=== PATIENT | female | born 1945 ===

== ENCOUNTER 2024-02-26 06:22 | Day surgery (SDC) | payer MEDICARE, SELFPAY ==
--- NOTE | 2024-02-23 13:21 | PTCARENOTE ---
Spoke with Ricky Mccurdy LPN @ [facility]. She stated patient was in facility for rehab, living independently prior to admission and she was unsure if patient was returning to facility or going home with family. Ricky will
call back today to mariana- Robyn Landry from [employer] notified.
[2024-02-23 16:07] VITALS: BMI 23.4
[2024-02-26] VITALS (7 sets, daily range): BP systolic 111–141; BP diastolic 57–69; BMI 23.4
[2024-02-26 09:26] LABS: Glucose - Point of Care 86 mg/dl (70-99)
[2024-02-26] MEDS: TYLENOL 1000 MG PO (09:27)
[2024-02-26] MEDS: NORMOSOL-R/PLASMALYTE-A 1000 IV (09:27)
--- NOTE | 2024-02-26 09:48 | CM ---
Late Entry for Thursday 02/22. Call placed to Shane at [facility], who directed me to call Coreen in Admissions. Spoke to Coreen , she stated that patient can return to them, pending their bed availability. She stated she was not sure whether the
patient's plan was to return to their facility after her surgery or to go home with her daughter to recover from the surgery. Will speak to patient post her surgery to discuss discharge plans.
[2024-02-26 12:05] LABS: Glucose - Point of Care 89 mg/dl (70-99)
--- NOTE | 2024-02-26 13:37 | SUR.PHASEII ---
call placed to ambulance service for pickup , vss, Dr Lockett called for clarification of restart of xarelto and need for post op shoe - orders received. SDS with available space, report given and transfered to physical SDS
--- NOTE | 2024-02-26 14:22 | PTCARENOTE ---
Patients d/c instructions clarified several times. Dr. Lockett was ordering ASA but patient is on Xarelto. Dr. Lockett stated that she is not to go home on ASA and to D/C it. Requested of Dr. Lockett that he send a paper script via fax at the [place]
request) to [facility] [place]. Dr. Lockett stated that he was going to have his office staff do it. Called the [facility] back three times, once to give report, once to go over clarified d/c instructions and
last time to again reiterate that patient is not to take ASA. Will monitor patient.
== END 2024-02-26 14:22 ==
LOC: SDS 06:22
PROVIDERS: ATTENDING PHYSICIAN Student in an Organized Health Care Education/Training Program
PROC: 0QP104Z Removal of Internal Fixation Device from Sacrum, Open Approach (ICD-10-PCS; 2024-02-26)
DX: T84.84XA Pain due to internal orthopedic prosthetic devices, implants and grafts, initial encounter (principal); Y79.8 Miscellaneous orthopedic devices associated with adverse incidents, not elsewhere classified
CPT/HCPCS: 20680; 82962